=== PATIENT | female | born 2000 | race Caucasian/White ===

== ENCOUNTER 2021-01-07 20:49 | Emergency (ER) | payer OTHER ==
[~2021-01-07] VITALS: Ht 162.6 cm; Wt 77.1 kg
[2021-01-07 21:00] VITALS: BP_SYST 131
--- NOTE | 2021-01-07 23:21 | NUR ---
Patient to ER bed 1 to gown for evaluation. Side rails up.
--- NOTE | 2021-01-07 23:23 | NUR ---
Patient BIB by family from home. C/O Head injury x 2 days. Patient reported, had head injury, hit the bed frame twice by accident. Patient had nausea and vomitting and posterior of head, bump . A/O,X4, head pain, nausea, pain rate 5-6/10.
--- NOTE | 2021-01-07 23:44 | NUR ---
ER Dr. Teran at bedside examining patient.
[2021-01-08] MEDS ORDERED: ONDA-8 TL (00:05)
[2021-01-08 00:17] VITALS: BP_SYST 131
--- NOTE | 2021-01-08 00:17 | NUR ---
Patient given written and verbal discharge instructions and verbalizes understanding. ER MD discussed with patient the results and treatment provided. Patient in stable condition. ID arm band removed. Rx of Zofran given. Patient educated on pain management and to follow up with PMD. Pain Scale 0/10. Opportunity for questions provided and answered. Medication side effect fact sheet provided.
== END 2021-01-08 00:17 | disposition home or self-care (01) ==
LOC: SED 20:49
DX: S06.0X0A Concussion without loss of consciousness, initial encounter (principal); Z88.1 Allergy status to other antibiotic agents; Z79.899 Other long term (current) drug therapy; W22.8XXA Striking against or struck by other objects, initial encounter; Y93.89 Activity, other specified; Y92.89 Other specified places as the place of occurrence of the external cause; Y99.8 Other external cause status
CPT/HCPCS: 99283